=== PATIENT | female | born 1940 | race Caucasian/White ===

== ENCOUNTER 2023-04-08 10:37 | Outpatient (CLI) | payer MEDICARE, BC, SELFPAY ==
[2023-04-08 19:59] LABS: Vitamin D 25 Hydroxy 24.7 ng/mL
[2023-04-08 20:31] LABS: Folic Acid 6.8 ng/mL (2.76->20)
== END 2023-04-08 10:38 | disposition home or self-care (01) ==
PROVIDERS: PCP Family Medicine; Visit Provider Family Medicine
DX: E53.8 Deficiency of other specified B group vitamins (principal); E55.9 Vitamin D deficiency, unspecified
CPT/HCPCS: 36415; 82306; 82607; 82746

== ENCOUNTER 2023-05-23 11:17 | Outpatient (CLI) | payer MEDICARE, BC, SELFPAY ==
[2023-05-23 13:36] LABS: Free T4 Free Thyroxine 1.12 ng/mL (0.78-2.19)
[2023-05-23 13:47] LABS: Thyroid Stimulating Hormone < 0.015 uIU/mL (0.465-4.680)
== END 2023-05-23 11:18 | disposition home or self-care (01) ==
LOC: ANHGOSHLAB 11:20
PROVIDERS: PCP Family Medicine; Visit Provider Family Medicine
DX: E03.9 Hypothyroidism, unspecified (principal)
CPT/HCPCS: 36415; 84439; 84443

== ENCOUNTER 2023-06-30 09:08 | Outpatient (CLI) | payer MEDICARE, BC, SELFPAY ==
[2023-06-30 15:39] LABS: Free T4 Free Thyroxine 1.21 ng/mL (0.78-2.19)
== END 2023-06-30 09:09 | disposition home or self-care (01) ==
PROVIDERS: PCP Family Medicine; Visit Provider Family Medicine
DX: E03.9 Hypothyroidism, unspecified (principal)
CPT/HCPCS: 36415; 84439; 84443

== ENCOUNTER 2023-08-12 10:49 | Outpatient (CLI) | payer MEDICARE, BC, SELFPAY ==
[2023-08-12 13:42] LABS: Free T4 Free Thyroxine Reflex 1.26 ng/dL (0.78-2.19)
[2023-08-12 14:50] LABS: Total Triiodothyronine (T3) 0.96 NG/ML (0.97-1.69)
== END 2023-08-12 10:50 | disposition home or self-care (01) ==
PROVIDERS: PCP Family Medicine; Visit Provider Family Medicine
DX: E03.9 Hypothyroidism, unspecified (principal); R53.83 Other fatigue; Z13.29 Encounter for screening for other suspected endocrine disorder
CPT/HCPCS: 36415; 84439; 84443; 84480

== ENCOUNTER 2023-10-12 11:05 | Outpatient (CLI) | payer MEDICARE, BC, SELFPAY ==
[2023-10-12 16:19] LABS: Free T4 Free Thyroxine Reflex 1.26 ng/dL (0.78-2.19)
[2023-10-14 16:38] LABS: Total Triiodothyronine (T3) 1.02 NG/ML (0.97-1.69)
== END 2023-10-12 11:06 | disposition home or self-care (01) ==
LOC: ANHGOSHLAB 11:07
PROVIDERS: PCP Family Medicine; Visit Provider Family Medicine
DX: E03.9 Hypothyroidism, unspecified (principal)
CPT/HCPCS: 36415; 84439; 84443; 84480

== ENCOUNTER 2024-01-10 13:34 | Outpatient (CLI) | payer MEDICARE, BC, SELFPAY ==
[2024-01-10 19:06] LABS: Free T4 Free Thyroxine 1.16 ng/mL (0.78-2.19)
== END 2024-01-10 13:35 | disposition home or self-care (01) ==
PROVIDERS: PCP Family Medicine; Visit Provider Family Medicine
DX: E03.9 Hypothyroidism, unspecified (principal)
CPT/HCPCS: 36415; 84439; 84443

== ENCOUNTER 2024-02-24 13:51 | Outpatient (CLI) | payer MEDICARE, BC, SELFPAY | END 2024-02-24 13:52 | disposition home or self-care (01) | LOC: ANHGOSHLAB 13:53 | PROVIDERS: PCP Family Medicine; Visit Provider Family Medicine | DX: E03.9 Hypothyroidism, unspecified (principal) | CPT/HCPCS: 36415; 84439; 84443 ==

== ENCOUNTER 2024-02-24 15:09 | Outpatient (CLI) | payer MEDICARE, BC, SELFPAY ==
--- NOTE | ~2024-02-24 | XR_ITS ---
EXAMINATION: XR chest 2V DATE: 02/24/2024 15:25 INDICATION: Asthma presenting with cough and shortness of breath TECHNIQUE: PA and lateral views of the chest were obtained. COMPARISON: Chest radiograph dated 09/04/2021 FINDINGS: Small calcified nodule at the lateral left lower lung zone consistent with old granulomatous disease. The lungs are otherwise clear with no focal airspace opacities, pulmonary edema, pleural effusion or pneumothorax. The cardiomediastinal silhouette is normal. Moderate thoracic spondylosis. IMPRESSION: 1. No acute cardiopulmonary disease. Reviewed, dictated and finalized at location A.
== END 2024-02-24 15:10 ==
PROVIDERS: PCP Family Medicine; Visit Provider Family Medicine
DX: R05.9 Cough, unspecified (principal); R06.02 Shortness of breath
CPT/HCPCS: 71046

== ENCOUNTER 2024-06-27 08:31 | Emergency (ER) | payer MEDICARE, SELFPAY ==
--- NOTE | ~2024-06-27 | XR_ITS ---
EXAMINATION: XR chest 2V DATE: 06/27/2024 09:07 INDICATION: Cough. TECHNIQUE: Frontal and lateral views of the chest were obtained. COMPARISON: Chest 2 views 02/24/2024 FINDINGS: There is no pneumonia, pleural effusion, or pneumothorax. The heart size is normal. IMPRESSION: 1. No acute cardiopulmonary disease. Reviewed, dictated and finalized at location A. COORDINATOR
[2024-06-27 08:41] VITALS: BP 152/86; PULSE 99; RESP 16; TEMP 36.5; O2SAT 98
--- NOTE | 2024-06-27 08:55 | ED_ITS ---
HPI - URI/Sore Throat General Chief Complaint: Upper Respiratory Infection Stated Complaint: COUGH/CHEST CONGESTION/IRENE/SORE THROAT/SINUS Time Seen by Provider: 06/27/24 08:56 Source: patient and RN notes reviewed Mode of arrival: ambulatory Limitations: no limitations History of Present Illness HPI Narrative: 84 y/o female with hx asthma presented for c/o cough and nasal congestion with drainage for 4 days. Daughter with similar symptoms. Denies sob, wheezing, n/v/d/f/c. Took Nyquil. MD elicited complaint: cough Related Data Home Medications Medication Instructions Recorded Confirmed albuterol sulfate 90 mcg/actuation 1 puff inhalation Q4H 08/03/19 06/27/24 aerosol inhaler (Ventolin HFA) mecobalamin (vitamin B12) 1,000 1,000 mcg PO DAILY 07/01/23 06/27/24 mcg lozenges Allergies Allergy/AdvReac Type Severity Reaction Status Date / Time shellfish derived Allergy Severe HIVES/RED Verified 06/27/24 08:51 FACE egg Allergy Unknown Abdominal Verified 06/27/24 08:51 Pain iodine Allergy Unknown Swelling Verified 06/27/24 08:51 latex Allergy Unknown Hives Verified 06/27/24 08:51 Sulfa (Sulfonamide Allergy Unknown Unknown Verified 06/27/24 08:51 Antibiotics) seafood Allergy Unknown Hives / Uncoded 06/27/24 08:51 Red Face eggs AdvReac Mild Nausea and Uncoded 06/27/24 08:51 Vomiting Review of Systems Review of Systems: CONSTITUTIONAL: Denies malaise, chills, sweats, fever EYES: Denies visual changes, redness, or discharge ENT: Reports rhinorrhea, congestion, denies sinus pain, otalgia, sore throat CARDIOVASCULAR: Denies chest pain, palpitations, edema RESPIRATORY: Reports cough, post nasal drainage. Denies dyspnea GASTROINTESTINAL: Denies abdominal pain, nausea, vomiting, diarrhea MUSCULOSKELETAL: Denies myalgia NEUROLOGIC: Denies headache PMFSH Past Medical History Medical History Screening for thyroid disorder Surgical History Surgical History H/O cataract extraction Bilateral Family History Family History Mother Family history of Alzheimer's disease, Onset Age: 83 Social History Social History Smoking status: Never smoker Alcohol intake: never Substance use: never Substance use type: does not use Lack of Transportation: No Lack of Food: Never True Current Housing: I Have Housing Concerned About Future Housing: No Difficulty Paying Gas/Electric Bills: No Difficulty Paying for Meds: No Currently Unemployed: No Difficulty w/ Childcare or Family Care: No Exam Narrative: GENERAL: well-appearing, nontoxic no acute distress. HEAD: Normocephalic EYES: PERRLA, conjunctivae clear ENT: Mucous membranes moist. Nasal congestion. TM pearly roman with dull light reflex bilaterally; no tragal tenderness. Oropharynx not erythematous without lesions or exudate, no drooling, no hoarseness, no trismus, uvula midline. No tripod positioning, muffled voice, soft palate or pharyngeal wall bulging NECK: Supple. No lymphadenopathy CHEST: Mild congestion right lower lung, otherwise clear. No wheezing, rhonchi, rales, or stridor. No respiratory distress, speaks in full sentences. HEART: Regular rate and rhythm. SKIN: Warm, dry NEURO: Alert and oriented x3. PSYCH: Normal mood and affect Course Course Emergency Course: Patient is aware of diagnosis, understands and agrees to treatment plan. Anticipatory guidance given. Patient agrees to follow-up as directed and is aware of reasons to seek care at the emergency department. Portions of this record may have been created with voice recognition software Level of Care: Express Care Visit Vital Signs Vital signs: Vital Signs Temperature 97.7 F 06/27/24 08:41 Pulse Rate 99 06/27/24 08:41 Respiratory Rate 16 06/27/24 08:41 Blood Pressure 152/86 H 06/27/24 08:41 Pulse Oximetry 98 06/27/24 08:41 Temperature 97.7 F 06/27/24 08:41 Pulse Rate 99 06/27/24 08:41 Respiratory Rate 16 06/27/24 08:41 Blood Pressure 152/86 H 06/27/24 08:41 Pulse Oximetry 98 06/27/24 08:41 reviewed MDM - URI/Sore Throat MDM Narrative Medical decision making narrative: Discussed physical exam findings, flu, covid and CXR. Advised supportive measures and signs/symptoms to go to the ER. Pt is appropriate for outpt jose alejnadro atment and f/u. Differential Diagnosis Differential diagnosis: Likely upper respiratory infection, sinusitis and viral infection Imaging Data Radiologist's impression: Patient: Yeimy Lockett : 1940 MR#: [id number] Age: 84 Acct:[id number] Loc: [facility] ADM Date: 06/27/24Attending Dr: Ordering Physician: Donna Jacobs APRN Date of Service: 06/27/24 Procedure(s): XR chest 2V Accession Number(s): [id number] cc: Donna Jacobs APRN; Milton Khan DO~ EXAMINATION: XR chest 2V DATE: 06/27/2024 09:07 INDICATION: Cough. TECHNIQUE: Frontal and lateral views of the chest were obtained. COMPARISON: Chest 2 views 02/24/2024 FINDINGS: There is no pneumonia, pleural effusion, or pneumothorax. The heart size is normal. IMPRESSION: 1. No acute cardiopulmonary disease. Discharge Plan Discharge Clinical Impression: Upper respiratory infection Patient Disposition: Home, Self-Care Condition: Stable Instructions: Antibiotic Form, Upper Respiratory Infection (ED) Additional Instructions: Flu and COVID negative. Chest x-ray showed no pneumonia Recommendations: Flonase spray and Zyrtec (or Claritin/Manisha) over the counter Cough syrup may cause drowsiness; avoid driving or take it at night time. Tylenol 1000mg every 8 hours as needed for pain Symptomatic treatment includes: rest, fluids, and increase humidity of the air at home. Follow up with your primary care provider in 1 week. Go to the ER for worsening symptoms or concerns. Prescriptions: New prednisone 20 mg tablet 40 mg PO DAILY 3 Days Qty: 6 0RF No Action albuterol sulfate 2.5 mg /3 mL (0.083 %) solution for nebulization 2.5 mg inhalation Q6H Qty: 75 0RF levalbuterol tartrate 45 mcg/actuation HFA aerosol inhaler 2 inh inhalation Q6H Qty: 15 2RF mecobalamin (vitamin B12) 1,000 mcg lozenge 1,000 mcg PO DAILY Rx Instructions: allow to dissolve in mouth OR may chew lightly before swallowing albuterol sulfate [Ventolin HFA] 90 mcg/actuation HFA aerosol inhaler 1 puff INHALATION Q4H levothyroxine 75 mcg tablet 75 mcg PO .6Xweekly Qty: 90 1RF Follow-up/Referrals: Milton Khan DO [Primary Care Provider] -
[2024-06-27 09:31] LABS: EDCOVIDSCREEN Negative (Negative); EDINFLUASCREEN Negative (Negative); EDINFLUBSCREEN Negative (Negative)
== END 2024-06-27 09:19 | disposition home or self-care (01) ==
PROVIDERS: Emergency Provider Nurse Practitioner Family; PCP Family Medicine
DX: J06.9 Acute upper respiratory infection, unspecified (principal); Z20.822 Contact with and (suspected) exposure to COVID-19
CPT/HCPCS: 71046; 87426; 87804; 99213; G0463

== ENCOUNTER 2024-07-20 10:04 | Outpatient (CLI) | payer MEDICARE, SELFPAY ==
[2024-07-20 12:42] LABS: Free T4 Free Thyroxine 1.43 ng/dL (0.78-2.19)
== END 2024-07-20 10:05 | disposition home or self-care (01) ==
LOC: ANHGOSHLAB 10:06
PROVIDERS: PCP Family Medicine; Visit Provider Family Medicine
DX: E03.9 Hypothyroidism, unspecified (principal)
CPT/HCPCS: 36415; 84439; 84443

== ENCOUNTER 2024-10-09 14:57 | Outpatient (CLI) | payer MEDICARE, SELFPAY ==
--- OUTSIDE RECORDS SUMMARY | 2024-10-09 16:54 | XMS_ITS | Referral Summary ---
Author Organization [facility] [address] [place] [id number] Care Team Providers Care Tour Leader Name Role Phone Rogelio Downing MD Primary Care Provider [phone] Jovi Acosta MD Unavailable [phone] Allergies No known active allergies Medications cetirizine (ZyrTEC) 10 mg chewable tablet Take 10 mg by mouth daily Active diphenhydrAMINE (BENADRYL) 50 mg capsule Take 50 mg by mouth every 6 (six) hours as needed for itching Active [place] Thyroid 60 mg tabletIndications:P ostoperative hypothyroidism Take 1 tablet (60 mg total) by mouth daily 90 tablet 3 Active Active Problems Problem Noted Date Diagnosed Date 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 People can still buy it over the Internet--legally if it s Since pills made from animal thyroid are not purified, they contain hormones and proteins that never exist in the body outside of the thyroid gland. While desiccated thyroid contains both T4 and T3, the balance of T4 and T3 in animals is not the same as in humans, so the hormones in animal thyroid pills aren t necessarily n atural for the human body. Further, the amounts of both T4 and T3 can vary in every batch of desiccated thyroid, making it harder to keep blood levels right. Finally,even desiccated thyroid pills have chemicals (binders) in them to hold the pill together, so they are not completely n atural . Desiccated animal thyroid is rarely prescribed today, and there is no evidence that desiccated thyroid has any advantage over synthetic T4. 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 People can still buy it over the Internet--legally if it s Since pills made from animal thyroid are not purified, they contain hormones and proteins that never exist in the body outside of the thyroid gland. While desiccated thyroid contains both T4 and T3, the balance of T4 and T3 in animals is not the same as in humans, so the hormones in animal thyroid pills aren t necessarily n atural for the human body. Further, the amounts of both T4 and T3 can vary in every batch of desiccated thyroid, making it harder to keep blood levels right. Finally,even desiccated thyroid pills have chemicals (binders) in them to hold the pill together, so they are not completely n atural . Desiccated animal thyroid is rarely prescribed today, and there is no evidence that desiccated thyroid has any advantage over synthetic T4. 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 People can still buy it over the Internet--legally if it s Since pills made from animal thyroid are not purified, they contain hormones and proteins that never exist in the body outside of the thyroid gland. While desiccated thyroid contains both T4 and T3, the balance of T4 and T3 in animals is not the same as in humans, so the hormones in animal thyroid pills aren t necessarily n atural for the human body. Further, the amounts of both T4 and T3 can vary in every batch of desiccated thyroid, making it harder to keep blood levels right. Finally,even desiccated thyroid pills have chemicals (binders) in them to hold the pill together, so they are not completely n atural . Desiccated animal thyroid is rarely prescribed today, and there is no evidence that desiccated thyroid has any advantage over synthetic T4. Assessment & Plan (01/19/2021 10:31 AM CDT): Reviewed patient's recent thyroid labs Iatrogenic hyperthyroidism Decrease Savannah Thyroid to 60 mg oral daily Recheck labs in 3 months and every 3 months Follow-up in 6 months Desiccated animal thyroid (Savannah ), now mainly obtained from pigs, was the most common form of thyroid therapy before the individual active thyroid hormones were discovered. People can still buy it over the Internet--legally if it s Since pills made from animal thyroid are not purified, they contain hormones and proteins that never exist in the body outside of the thyroid gland. While desiccated thyroid contains both T4 and T3, the balance of T4 and T3 in animals is not the same as in humans, so the hormones in animal thyroid pills aren t necessarily n atural for the human body. Further, the amounts of both T4 and T3 can vary in every batch of desiccated thyroid, making it harder to keep blood levels right. Finally,even desiccated thyroid pills have chemicals (binders) in them to hold the pill together, so they are not completely n atural . Desiccated animal thyroid is rarely prescribed today, and there is no evidence that desiccated thyroid has any advantage over synthetic T4. Assessment & Plan (09/29/2020 11:48 AM EDGE STAINER): Reviewed patient recent thyroid labs TSH though within normal limits Patient not tolerating Synthroid very well Quality of life is not good with Synthroid Therefore changed to thyroid pork tablet 81.25 mg oral daily Explained patient the side effects, benefits of the medication Also explain patient that JESÚS guidelines do not recommend this formulation of thyroid replacement Repeat thyroid labs in 3 months in follow-up in 3 months Social History Tobacco Use Types Packs/Day Years Used Date Smoking Tobacco: Never Smokeless Tobacco: Never Tobacco Cessation:Counseling Given: Not Answered AUDIT-C Answer Date Recorded Q1: How often do you have a drink containing alc ohol? Never 06/22/2021 Average Number of Drinks Not on file 021 Frequency of Binge Drinking Not on file 05/26 PHQ-2 Answer Date Recorded PHQ-2 Total Score (If total score is 3 or more points, staff should administer the PHQ-9) 0 07/06/2021 Personal Safety Answer Date Recorded Getting School Help Needed Not on file 09/24 Comments Unknown Sex and Gender Information Value Date Recorded Sex Assigned at Not on file Legal Sex Female 9:00 AM EDGE STAINER Gender Identity Not on file Sexual Orientation Not on file Last Filed Vital Signs Vital Sign Reading Time Taken Comments Blood Pressure 140/90 01/03/2023 9:50 AM CDT Pulse 100 01/03/2023 9:50 AM CDT Temperature 36.8 C (98.2 F) 06/22/2021 12:45 PM EDGE STAINER Respiratory Rate 12 01/03/2023 9:50 AM CDT Oxygen Saturation 98% 06/22/2021 12:45 PM EDGE STAINER Inhaled Oxygen Concentration - - Weight 68.7 kg (151 lb 6.4 oz) 01/03/2023 9:50 A M CDT Height 167.6 cm (5' 6 ) 01/03/2023 9:50 AM CDT Body Mass Index 24.44 01/03/2023 9:50 AM CDT Plan of Treatment Not on file Insurance MEDICARE [facility] MEDICARE [facility] MEDICARE [facility] TR[facility]ITION[facility] Member Subscriber Plan / Payer (Ef fective 2021-Present) Name:Yeimy Lockett Relation to Subscriber:Self Name:Yeimy Lockett Payer ID:[id number] (NAIC) Type:[employer] Address: [address] [place] [id number] Care Teams Tour Leader Relationship Specialty Start Date End Date Rogelio Downing MD [address] [place] [address] PCP - General Internal Medicine 09/16/20 [place] [id number] [facility] [address] [place] [address] Consulting Physician Endocrinology 09/16/20
--- OUTSIDE RECORDS SUMMARY | 2024-10-09 16:54 | XMS_ITS | Continuity of Care Document ---
Author Organization [facility] Address [address] [place] [address] Phone Care Team Providers Care Plc Engineer Name Role Phone Tung PT,MPT,ATC, Patrice Unavailable Unavai lable Procedures Procedure Date Therapeutic Activities Neuromuscular Re-Ed Therapeutic Activities Neuromuscular Re-Ed Therapeutic Activities Neuromuscular Re-Ed Therapeutic Activities Neuromuscular Re-Ed Doc neg elder mal no plan PRES/ABSN URINE INCON ASSESS PT Evaluation Moderate Complexity Therapeutic Activities Neuromuscular Re-Ed Advance Directives Directive Yes / No Effective Date File Name No Information Encounters Encounter Description Practice Location Reason(s) For Visit Diagnoses Date Provider Providers Copied on Encounter [facility] [place]amon [facility], [place], [place], [id number], tel:[phone] [place] No Information 4 Tung Ibrahim. , [place], [place]. [facility], [place], [place], [id number], tel:[phone] [place] No Information 4 Patrick Osborne. . Referring Provider: Milton Khan, [address] [facility], [place], [address]. tel:[phone] [facility], [place], [place], [id number], tel:[phone] [place] No Information 4 [facility]. Referring Provider: Milton hKan, [address] [place] [address], [address]. tel:[phone] [facility] [address] [place] [address], [place], [place], [id number], tel:[phone] [place] No Information 4 [place], [place], . Referring Provider: Milton Khan, [address] [place] [address], [address]. tel:[phone], [id number], tel:[phone] [place] No Information 4 [facility]. Referring Provider: Milton Khan, [address] [place] [address], [address]. tel:[phone] [facility] [address] [place] [address], [place], [place], [id number], tel:[phone] [place] No Information 4 [facility]. Referring Provider: Milton Khan, [address] [place] [address], [address]. tel:[phone] Family History Family Member Type Diagnosis Age At Onset No Information Payers Payer name Insurance type Covered democrat ID Authorcaleba devin(s) Medicare [place] [id number] [facility] [id number] Social History Type Description Quantity Date Captured Comments Sex Female Smoking Status No Information Chief Complaint And Reason For Visit No Information Reason For Referral Reason For Referral No Information History Of Present Illness Encounter Date Complaint History Of Prese nt Illness No Information Functional Status Date Functional Assessmen t No Information Instructions Date Instruction Additional Infor mation No Information Assessments Type Assessment Date No Information Patient Care Teams Name Effective Dates (start - stop) Status Members No Information
--- OUTSIDE RECORDS SUMMARY | 2024-10-09 16:54 | XMS_ITS | Clinical Summary ---
Author Organization [facility] [address] [place] [address] Care Team Providers Care Buttonhole Maker Hand Name Role Phone Rogelio Downing MD Primary Care Provider [phone] Jovi Acosta MD Unavailable [phone] Allergies No known active allergies Medications cetirizine (ZyrTEC) 10 mg chewable tablet Take 10 mg by mouth daily Active diphenhydrAMINE (BENADRYL) 50 mg capsule Take 50 mg by mouth every 6 (six) hours as needed for itching Active [place] Thyroid 60 mg tabletIndications:P ostoperative hypothyroidism Take 1 tablet (60 mg total) by mouth daily 90 tablet 3 Active Active Problems Problem Noted Date Diagnosed Date 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 Assessment & Plan (09/29/2020 11:48 AM ACCOUNTS RECEIVABLE COORDINATOR): Reviewed patient recent thyroid labs TSH though [...] 3 months in follow-up in 3 months Surgical History Surgery Date Site/Laterality Comments THYROIDECTOMY BLADDER SURGERY HYSTERECTOMY Medical History Medical History Date Comments Asthma Hypothyroidism Social History Tobacco Use Types Packs/Day Years [...] on file Legal Sex Female 9:00 AM ACCOUNTS RECEIVABLE COORDINATOR Gender Identity Not on file Sexual Orientation Not on file Obstetrics History Last Filed Vital Signs Vital Sign Reading Time Taken Comments Blood Pressure 140/90 01/03/2023 9:50 AM CDT Pulse 100 01/03/2023 9:50 AM CDT Temperature 36.8 C (98.2 F) 06/22/2021 12:45 PM ACCOUNTS RECEIVABLE COORDINATOR Respiratory Rate 12 01/03/2023 9:50 AM CDT Oxygen Saturation 98% 06/22/2021 12:45 PM ACCOUNTS RECEIVABLE COORDINATOR Inhaled Oxygen Concentration - - Weight 68.7 kg (151 lb 6.4 oz) 01/03/2023 9:50 A M CDT Height 167.6 cm (5' 6 ) 01/03/2023 9:50 AM CDT Body Mass Index 24.44 01/03/2023 9:50 AM CDT Plan of Treatment Health Maintenance Due Date Last Done Comments Fall Risk Assessment 1940 Osteoporosis Screening-Bone Density Scan 1940 DTaP/Tdap/Td Vaccine (1 - Tdap) 1950 Hepatitis B Screening 1957 Pneumococcal vaccine 65+ (1 of 1 - PCV) 1989 Zoster Vaccine (1 of 2) 1989 Well Visit 65+ 2004 Depression Screening 07/06/2022 07/06/2021, 01/19/2021, 09/29/2020 Influenza Vaccine (#1) 2024 04/25/2020 Insurance MEDICARE [facility] MEDICARE [facility] MEDICARE [facility] TRADITIONAL Care Teams Buttonhole Maker Hand Relationship Specialty Start Date End Date Rogelio Downing MD [address] [place] [address] PCP - General Internal Medicine 09/16/20 [place] [address] [facility] [address] [place] [address] Consulting Physician Endocrinology 09/16/20
[2024-10-09 19:32] LABS: Basophils Absolute Auto 0.1 K/mm3 (0.0-0.1); Basophils Percent Auto 0.8 % (0.2-1.2); Eosinophils Absolute Auto 0.2 K/mm3 (0-0.3); Eosinophils Percent Auto 1.8 % (0-4.4); Hematocrit 42.5 % (37.0-47.0); Hemoglobin 13.7 g/dL (12.0-15.0); Immature Granulocyte Absolute 0.01 K/mm3 (0.00-0.031); Immature Granulocyte Percent A 0.1 % (0-0.5); Lymphocytes Percent Auto 24.2 % (18.3-44.2); Mean Corpuscular HGB Conc 32.2 g/dl (32-36); Mean Corpuscular Hemoglobin 29.8 pg (26-34); Mean Corpuscular Volume 92.4 fl (80-100); Mean Platelet Volume 10.2 fl (7.4-10.4); Monocytes Absolute Auto 0.7 K/mm3 (0.1-0.6); Monocytes Percent Auto 7.7 % (2.6-8.5); Neutrophils Absolute Auto 5.7 K/mm3 (1.3-6.7); Neutrophils Percent Auto 65.4 % (45.5-73.1); Platelet Count Result 313 k/mm3 (150-375); Red Cell Distribution Width 13.8 % (11.5-14.5); White Blood Count 8.7 K/mm3 (4.5-10.0)
[2024-10-09 19:44] LABS: Rheumatoid Factor < 12.0 IU/ML (<12)
[2024-10-09 19:45] LABS: Alanine Aminotransferase 12 U/L (6-35); Albumin Level 4.4 g/dL (3.5-5.1); Alkaline Phosphatase 69 U/L (38-126); Anion Gap 8 mmol/L (4-12); Aspartate Amino Transferase 23 U/L (14-36); Bilirubin,Total 0.3 mg/dL (0.2-1.3); Blood Urea Nitrogen 13 mg/dL (7-17); Calcium 9.2 mg/dL (8.4-10.2); Carbon Dioxide 27 mmol/L (22-30); Chloride 105 mmol/L (98-107); Cholesterol 182 mg/dL (0-200); Estimated Glomerular Filt Rate 53; Glucose 97 mg/dL (65-110); HDL Direct 48 mg/dL; Potassium 4.6 mmol/L (3.4-5.0); Sodium 140 mmol/L (137-145); Triglycerides 148 mg/dL (<150)
[2024-10-09 19:56] LABS: LDL Cholesterol Direct 86 mg/dL
[2024-10-09 20:03] LABS: Erythrocyte Sedimentation Rate 10 mm/hr (0-20); Free T4 Free Thyroxine 1.57 ng/dL (0.78-2.19)
[2024-10-09 20:37] LABS: Hepatitis C Virus Antibody Negative (Negative)
[2024-10-11 14:43] LABS: Thyroid Peroxidase Antibodies 3 IU/mL (<9)
[2024-10-11 18:18] LABS: ANA Cascade Screen NEGATIVE (NEGATIVE)
== END 2024-10-09 14:58 | disposition home or self-care (01) ==
LOC: ANHGOSHLAB 14:58
PROVIDERS: PCP Family Medicine; Visit Provider Family Medicine
DX: E03.9 Hypothyroidism, unspecified (principal); Z00.00 Encounter for general adult medical examination without abnormal findings; M25.50 Pain in unspecified joint; Z11.59 Encounter for screening for other viral diseases; J45.20 Mild intermittent asthma, uncomplicated
CPT/HCPCS: 36415; 80053; 80061; 84439; 84443; 84550; 85025; 85652; 86038; 86225; 86235; 86364; 86376; 86430; 86803

== ENCOUNTER 2024-10-09 15:16 | Outpatient (CLI) | payer MEDICARE, SELFPAY ==
--- NOTE | ~2024-10-09 | XR_ITS ---
XR hand BI arthritis min 3V Ordering provider: Teressa Sawant MD History: . M25.50 - Pain in unspecified joint . Comparison: None. FINDINGS: RIGHT HAND: --BONES: No acute fracture or dislocation. No osteopenia. --JOINT SPACES: Narrowing of the proximal and distal interphalangeal joints with cystic changes and o steophytes. --SOFT TISSUES: Unremarkable. No soft tissue swelling or nodules. LEFT HAND: --BONES: No acute fracture or dislocation. --JOINT SPACES: Narrowing of the proximal and distal interphalangeal joints with subarticular cystic changes and osteophytes suggestive of osteoarthritic changes. --SOFT TISSUES: Unremarkable. No soft tissue swelling or nodules. IMPRESSION: 1. No acute osseous abnormality bilateral hands. 2. Bilateral osteoarthritic changes. Reviewed, dictated and finalized at location A.
--- NOTE | ~2024-10-09 | XR_ITS ---
HISTORY: M25.50 - Pain in unspecified joint COMPARISON: None TECHNIQUE: 2 views of the right foot were performed FINDINGS: No acute fracture or dislocation is appreciated. Significant degenerative disease is noted. The base of the fifth metatarsal is intact. A moderate calcaneal spur is noted. 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 Joint space narrowing and sclerosis is identified within the proximal interphalangeal joint spaces of the second third fourth and fifth toe s with narrowing and sclerosis of the distal interphalangeal joint spaces of the fourth and fifth toe s. No significant soft tissue swelling is present. IMPRESSION: Significant degenerative disease, as detailed above, without acute fracture. Reviewed, dictated and finalized at location A.
== END 2024-10-09 15:17 | disposition home or self-care (01) ==
PROVIDERS: PCP Family Medicine; Visit Provider Family Medicine
DX: M19.041 Primary osteoarthritis, right hand (principal); M19.042 Primary osteoarthritis, left hand; M19.071 Primary osteoarthritis, right ankle and foot
CPT/HCPCS: 73130; 73620

== ENCOUNTER 2025-01-10 11:09 | Outpatient (CLI) | payer MEDICARE, SELFPAY ==
--- OUTSIDE RECORDS SUMMARY | 2025-01-10 11:59 | XMS_ITS | Referral Summary ---
Author Organization [facility] Physician Office Building [address] [place] [id number] Care Team Providers Care Certified Medical Assistant Name Role Phone Rogelio Downing MD Primary Care Provider [phone] Jovi Acosta MD Unavailable [phone] Allergies No known active allergies Medications cetirizine (ZyrTEC) 10 mg chewable tablet Take 10 mg by mouth daily Active diphenhydrAMINE (BENADRYL) 50 mg capsule Take 50 mg by mouth every 6 (six) hours as needed for itching Active [place] Thyroid 60 mg tabletIndications:P ostoperative hypothyroidism Take 1 tablet (60 mg total) by mouth daily 90 tablet 3 Active Active Problems Problem Noted Date Diagnosed Date Postoperative hypothyroidism 11/22/1964 Assessment & Plan (01/03/2023 10:29 AM CDT): Chronic, unknown status Pt currently on [place] Thyroid to 60 mg oral daily Recheck labs today and further plans based on it Follow-up in 12 months 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 Assessment & Plan (09/29/2020 11:48 AM DRUG COUNSELOR): Reviewed patient recent thyroid labs TSH though [...] on file Legal Sex Female 9:00 AM DRUG COUNSELOR Gender Identity Not on file Sexual Orientation Not on file Last Filed Vital Signs Vital Sign Reading Time Taken Comments Blood Pressure 140/90 01/03/2023 9:50 AM CDT Pulse 100 01/03/2023 9:50 AM CDT Temperature 36.8 C (98.2 F) 06/22/2021 12:45 PM DRUG COUNSELOR Respiratory Rate 12 01/03/2023 9:50 AM CDT Oxygen Saturation 98% 06/22/2021 12:45 PM DRUG COUNSELOR Inhaled Oxygen Concentration - - Weight 68.7 kg (151 lb 6.4 oz) 01/03/2023 9:50 A M CDT Height 167.6 cm (5' 6) 01/03/2023 9:50 AM CDT Body Mass Index 24.44 01/03/2023 9:50 AM CDT Plan of Treatment Not on [place] [address] [facility], [facility] MEDICARE [facility] MEDICARE [facility] TRADITIONAL Member Subscriber Plan / Payer (Ef fective 2021-Present) Name:Yeimy Lockett Relation to Subscriber:Self Name:Yeimy Lockett Payer ID:[id number] (NAIC) Type:[employer] Address: [address] [place] [id number] Care Teams Certified Medical Assistant Relationship Specialty Start Date End Date Rogelio Downing MD [address] [place] [address] PCP - General Internal Medicine 09/16/20 [place] [id number] [facility] [address] [place] [address] Consulting Physician Endocrinology 09/16/20
--- OUTSIDE RECORDS SUMMARY | 2025-01-10 11:59 | XMS_ITS | Clinical Summary ---
Author Organization [facility] Physician Office Building [address] [place] [id number] Care Team Providers Care [employer] Manager Name Role Phone Rogelio Downing MD Primary Care Provider [phone] Jovi Acosta MD Unavailable [phone] Allergies No known active allergies Medications cetirizine (ZyrTEC) 10 mg chewable tablet Take 10 mg by mouth daily Active diphenhydrAMINE (BENADRYL) 50 mg capsule Take 50 mg by mouth every 6 (six) hours as needed for itching Active [place] Thyroid 60 mg tabletIndications:P ostoperative hypothyroidism Take 1 tablet (60 mg total) by mouth daily 90 tablet 3 Active Active Problems Problem Noted Date Diagnosed Date 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 Assessment & Plan (09/29/2020 11:48 AM REGULATOR TESTER): Reviewed patient recent thyroid labs TSH though [...] on file Legal Sex Female 9:00 AM REGULATOR TESTER Gender Identity Not on file Sexual Orientation Not on file Obstetrics History Last Filed Vital Signs Vital Sign Reading Time Taken Comments Blood Pressure 140/90 01/03/2023 9:50 AM CDT Pulse 100 01/03/2023 9:50 AM CDT Temperature 36.8 C (98.2 F) 06/22/2021 12:45 PM REGULATOR TESTER Respiratory Rate 12 01/03/2023 9:50 AM CDT Oxygen Saturation 98% 06/22/2021 12:45 PM REGULATOR TESTER Inhaled Oxygen Concentration - - Weight 68.7 [...] Screening 07/06/2022 07/06/2021, 01/19/2021, 09/29/2020 Influenza Vaccine (Season Ended) 2025 04/25/20 20 Insurance MEDICARE [facility] MEDICARE [facility] MEDICARE [facility] TRADITIONAL Care Teams [employer] Manager Relationship Specialty Start Date End Date Rogelio Downing MD [address] [place] [address] PCP - General Internal Medicine 09/16/20 [place] [id number] [facility] [address] [place] [address] Consulting Physician Endocrinology 09/16/20
[2025-01-10 20:36] LABS: Thyroid Stimulating Hormone 0.894 uIU/mL (0.465-4.680)
[2025-01-10 20:52] LABS: Free T4 Free Thyroxine 1.83 ng/dL (0.78-2.19)
== END 2025-01-10 11:10 | disposition home or self-care (01) ==
LOC: ANHGOSHLAB 11:10
PROVIDERS: PCP Family Medicine; Visit Provider Family Medicine
DX: E03.9 Hypothyroidism, unspecified (principal)
CPT/HCPCS: 36415; 84439; 84443